=== PATIENT | male | born 1965 | race Caucasian/White ===

== ENCOUNTER 2017-06-09 15:00 | Outpatient (RCR) | payer OTHER, SELFPAY ==
--- NOTE | 2017-05-25 07:34 | HP.PTEVAL_ITS ---
Patient's Visit Information PHIL LOMAS is a 51 year old M referred to Physical Therapy by Out of Town Doctor JASPER MARIE with a diagnosis of cervical disc degeneration, unspecified cervical region and cervical radicu. Date of Evaluation: 05/19/17 Physical Therapist: Mike Carpio - Visit Plan Frequency: 2x /Week Duration: 4 Weeks Plan: Start with cervical distraction, PA joint mobs as tolerated, progress into ext as tolerated. Work on improving thoracic spine ext/mobility. Educate in postural awareness. May use modalities as needed. - Subjective Subjective: Pt. is here today for his initial evalation with diagnosis of cervical disc degeneration, unspecified cervical region and cervical radiculopathy. Pt. reports having increased symptoms for several months now. Pt. reports taking increased gabapentin for his legs, but he is unsure if this is helping. He reports the injury occurred with lifting heavy objects at work. He believes it started while he was trying to keep up with a younger individual at work. Pt. reports on and off symptoms. Increased pain: bending neck fwrd/ bkward, bending over, sleeping, driving and raaching over head. Decreases symptoms: getting out of thos positions, but it never goes away. Pt. reports no exercises currently. Pt. does report N/T down L UE to all of his fingers. Pt. reports no sudden muscle weakness and is not dropping anything. Pt. is hopeful to reduce symptoms in order to complete all work and recreational activities without limitations. - Pain L UE Pain Intensity (Out of 10): 3 Pain Intensity Range: 1, 7 - Objective POSTURE: Pt. has FH positioning, rounded shoulders. Pt. has increased thoracic kyphosis, but is able to improve with VC/TCing. Pt. does have increased symptoms with correction of cervical spine. PALPATION: Pt. has increased tenderness along L UT, L levator scapulea, bilateral cerical erector spinea. No pain throughout bilateral shoulders. NEUROLoGICAL: Pt. has normal sensation throughotu bilateral UEs. Pt. has 2+ biceps and triceps DTR bilaterally. Pt. has no upper limb tension. ROM: Pt. has full ROM of B shoulders without increase in symptoms. CERVICAL SPINE: flexion nil loss increase NW, ext mod loss increase NW, rotation R min loss increase NW, rotation L min loss increase NW, SB min/nil loss bilat NE. MMT: Pt. has 5/5 strength throughout bilateral UEs, but does have mild increase NW with L shoulder flexion and abduction. CERVICAL ISOMETRICS: Pt. has 5/5 throughout. - Special Tests C/S Radiculapathy - Left Spurlings: Positive C/S Radiculapathy - Right Spurlings: Negative C/S Radiculapathy - Left Cervical distraction: Negative C/S Radiculapathy - Right Cervical distraction: Negative C/S Radiculapathy - Left Relief test: Negative C/S Radiculapathy - Right Relief test: Negative Cervical Sitting: Protrusion - Mechanical Response: No effect Cervical Sitting: Protrusion - Symptoms During Testing: No effect Cervical Sitting: Protrusion - Symptoms After Testing: No effect Cervical Sitting: Retraction - Mechanical Response: No effect Cervical Sitting: Retraction - Symptoms During Testing: Increases Cervical Sitting: Retraction - Symptoms After Testing: No worse Cervical Sitting: Retraction-Extension - Mechanical Response: No effect Cerv Sitting: Retraction-Extension - Symptoms During Testing: Abolishes Cerv Sitting: Retraction-Extension - Symptoms After Testing: No worse Cervical Sitting: Sidebend Right - Mechanical Response: No effect Cervical Sitting: Sidebend Right - Symptoms During Testing: No effect Cervical Sitting: Sidebend Right - Symptoms After Testing: No effect Cervical Sitting: Sidebend Left - Mechanical Response: No effect Cervical Sitting: Sidebend Left - Symptoms During Testing: No effect Cervical Sitting: Sidebend Left - Symptoms After Testing: No effect Cervical Sitting: Rotation Right - Mechanical Response: No effect Cervical Sitting: Rotation Right - Symptoms During Testing: Increases Cervical Sitting: Rotation Right - Symptoms After Testing: No worse Cervical Sitting: Rotation Left - Mechanical Response: No effect Cervical Sitting: Rotation Left - Symptoms During Testing: Increases Cervical Sitting: Rotation Left - Symptoms After Testing: No worse Cervical Sitting: Flexion - Mechanical Response: No effect Cervical Sitting: Flexion - Symptoms During Testing: Increases Cervical Sitting: Flexion - Symptoms After Testing: No worse Cervical Lying: Retraction - Mechanical Response: No effect Cervical Lying: Retraction - Symptoms During Testing: No effect Cervical Lying: Retraction - Symptoms After Testing: No effect - Goals Goal 1:: Pt. to be I with HEP. Goal Time Frame: 4-6 Weeks Goal 2:: Pt. to have increased cervical ROM by 25% in all effected ROM. Goal Time Frame: 4-6 Weeks Goal 3:: Pt. to sleep throughout the night with 0-1/10 pain allowing for increased quality of life. Goal Time Frame: 4-6 Weeks Goal 4:: Pt. to maintain improved posture in clinic indicating increased postural awareness. Goal Time Frame: 4-6 Weeks Goal 5:: Pt. to complete all job and recreational activities with 0-1/10 pain in L arm and neck. Goal Time Frame: 4-6 Weeks - Rehabilitation Potential Physical Therapy Diagnosis: Pt. has signs and symptoms consistent with cervical disc degeneration, unspecified cervical region and cervical radiculopathy. Pt. has cervical spine hypomobility, increased pain with cervical motions, improper posture and increased pain with all work related activities. Pt. would benefit from PT to increase cervical spine, restore joint mechanics, decrease pain and improve posture stability. Rehabilitation Potential: Good - Anticipated Interventions Patient/Client Instruction: Educate patient on: Condition, Plan of Care, Risk Factors, Benefits of Fitness Program For the Purpose of:: To foster healthy habits, To improve decision making, To facilitate caregiver knowledge, To improve self management, To prevent re-injury , To improve ability to perform tasks related to life management, To improve tolerance to ADL's Therapeutic Exercise to Include: Strength training, Power training, Body mechanics, Postural training, Flexibilty training, Passive ROM, Active ROM, Maria A Exercises, Scapular Strength/Stabilization For the Purpose of:: To decrease pain, To decrease swelling/inflammation, To increase ROM, To improve nutrient delivery to tissue, To increase oxygenation perfusion, To improve muscle performance and motor function, To improve ability to perform ADL's, To increase tolerance to activity/condition/position, To improve performance and independence with ADL's, To improve health of tissue, To decrease soft tissue restriction, To increase flexibility/ROM Manual Therapy Techniques to Include: Mobilization, Passive ROM, Functional dry needling, Soft tissue mobilization For the Purpose of:: To decrease pain, To decrease swelling/inflammation, To increase ROM, To improve nutrient delivery to tissue IF ES: Yes Cryotherapy (ice pack, ice massage): Yes Thermo therapy (hot pack): Yes Ultrasound (thermal/non thermal): Yes For the Purpose of:: To decrease pain, To increase ROM Thank you for the opportunity to evaluate your patient. For Medicare and Medicare HMO plans, please review the plan of care and approve it. It will need to be FAXED BACK to us at [phone] for Medicare purposes. Please let me know if there are questions or concerns regarding this plan of care. Physician Signature: Date:
--- NOTE | 2017-07-19 19:15 | HP.PTDCNRP_ITS ---
HP - Discharge Summary (1) - Patient Information PHIL LOMAS was seen in my office for initial evaluation on 05/19/17. The following Plan of Care was established for this patient: Initial Frequency: 2x /Week Initial Duration: 4 Weeks - Anticipated Interventions Patient/Client Instruction: Educate patient on: Condition, Plan of Care, Risk Factors, Benefits of Fitness Program For the Purpose of:: To foster healthy habits, To improve decision making, To facilitate caregiver knowledge, To improve self management, To prevent re-injury , To improve ability to perform tasks related to life management, To improve tolerance to ADL's Therapeutic Exercise to Include: Strength training, Power training, Body mechanics, Postural training, Flexibilty training, Passive ROM, Active ROM, Maria A Exercises, Scapular Strength/Stabilization For the Purpose of:: To decrease pain, To decrease swelling/inflammation, To increase ROM, To improve nutrient delivery to tissue, To increase oxygenation perfusion, To improve muscle performance and motor function, To improve ability to perform ADL's, To increase tolerance to activity/condition/position, To improve performance and independence with ADL's, To improve health of tissue, To decrease soft tissue restriction, To increase flexibility/ROM Manual Therapy Techniques to Include: Mobilization, Passive ROM, Functional dry needling, Soft tissue mobilization For the Purpose of:: To decrease pain, To decrease swelling/inflammation, To increase ROM, To improve nutrient delivery to tissue IF ES: Yes Cryotherapy (ice pack, ice massage): Yes Thermo therapy (hot pack): Yes Ultrasound (thermal/non thermal): Yes Intermittent cervical traction: Yes - added 05/25/17 For the Purpose of:: To decrease pain, To increase ROM This patient was last seen in our office 06/09/17. Pertinent comments regarding their Physical therapy will appear below: Pt. was seen for hier neck and arm pain. Pt. was treated with postural control, repeated motions into ext, traction, STM, and modalities. He reports all trials made his symptoms worse. He was to follow up with physican and back to PT if needed. Pt. has not been seen in ~6 weeks and will be DC from PT at this point in time. At this point I will be discontinuing this patient from physical therapy. I would be happy to see this patient again in the future if found appropriate by the physician. Thank you! Mike Carpio
== END 2017-06-09 19:00 | disposition home or self-care (01) ==
LOC: PT 15:00
PROVIDERS: Family Provider Internal Medicine; PCP Internal Medicine
DX: M54.12 Radiculopathy, cervical region (principal); M50.30 Other cervical disc degeneration, unspecified cervical region; M70.50 Other bursitis of knee, unspecified knee; G89.29 Other chronic pain
CPT/HCPCS: 97012; 97014; 97035; 97140; 97162; G0283